=== PATIENT | female | born 1950 | race Caucasian/White ===

== ENCOUNTER 2019-01-17 08:25 | Day surgery (SDC) | payer OTHER, SELFPAY ==
[2019-01-17] VITALS (8 sets, daily range): BP systolic 110–144; BP diastolic 76–85; PULSE 63–83; RESP 12–17; TEMP 36.2–36.6; O2SAT 92–100; BMI 26.9
--- NOTE | 2019-01-17 | DI.RAD.S_ITS ---
PROCEDURE: XR FOOT LT MIN 3V INDICATIONS: LESFRANC FX REPAIR 2ND METATARSEL TECHNIQUE: 2 views of the foot were acquired. COMPARISON: [facility], CT, CT FOOT LEFT WITHOUT CONTRAST, 01/11/2019, 14:42. [facility], CR, XR FOOT 3 VIEWS WEIGHT BEARING LEFT, 01/12/2019, 15:09. FINDINGS: Bones: Intraoperative images demonstrating fixation of the second metatarsal base to the tarsal bones. Hardware is intact. Previously identified fractures of the first and second cuneiform bones as well as the fourth metatarsal fracture are noted although not as well-seen as on prior exams. Soft tissues: No tibiotalar joint effusion. Achilles tendon appears normal. IMPRESSION: ORIF of second metatarsal and cuneiform fractures. Dictated by: Coretta Pike M.D. on 01/17/2019 at 15:51 Approved by: Coretta Pike M.D. on 01/17/2019 at 15:53
--- NOTE | 2019-01-17 09:59 | SUR.PREOP ---
Patient states that she asked the doctor at her office appointment, if she can leave on her toenail trinidadian and was told yes.
[2019-01-17] MEDS: LACTATED RINGERS 1,000 ML 42 ML IV ×2 (10:02→12:10)
--- NOTE | 2019-01-17 10:35 | PM.PREOP ---
Pre-operative Note Interval Note History & Physical reviewed/Exam performed by Physician: Yes Changes to H&P: No
[2019-01-17] MEDS: CLINDAMYCIN 900 MG/50 ML PIGGYBACK 50 MG IV (11:02)
--- NOTE | 2019-01-17 11:36 | SUR.OPER ---
Supine on padded OR bed, head on pillow, arms secured on padded arm boards at <90 degrees abduction, legs uncrossed, safety belt at thigh, tape over blanket over lower legs.
[2019-01-17] MEDS: BUPIVACAINE 0.25% W/ EPI 30 ML VIAL INJ (11:54)
--- NOTE | 2019-01-17 13:06 | PM.OP.1 ---
Operative Date/Time/Diagnoses Date of procedure: 01/17/19 Time of procedure: 11:35 Pre-op diagnosis: 1. Lisfranc fracture dislocation tarsometatarsal joints left foot S93.325 2. Fracture 2nd metatarsal left foot S92.322 3. Fracture 4th metatarsal left foot S92.342 Post-op diagnosis: same Procedure & Clinicians Procedure: 1. Open reduction internal fixation left tarsometatarsal joint fracture dislocation CPT code 85362 2. Open reduction internal fixation fracture left 2nd metatarsal CPT code 09816 3. Closed treatment 4th metatarsal fracture cpt 02318 Same procedure as scheduled: Yes Indications: The patient is a 68-year-old female out of fall and tripped over a dog leash 1 week ago. The patient was out of town when this happened. she went to an urgent care and then was referred to an ER where she was diagnosed with an unstable Lisfranc fracture dislocation injury. The patient was indicated for surgery for stabilization of her unstable fracture pattern to reduce the risks of malunion and symptomatic posttraumatic arthritis/defomity. We discussed the injury and treatment options in detail these included nonoperative treatments, open reduction internal fixation primary fusion options. The risks and benefits of surgery was discussed these risks include but are not limited to infection, malunion, nonunion, risk of bleeding, additional surgeries, persistent pain, risk of hardware irritation or breakage, injuries to nerves and blood vessels, DVT, PE, , cart amputation, cardiopulmonary complications. The in-depth treatment choices the differences between open reduction internal fixation primary thesis or discussed in detail with the patient. At this time patient has chosen to proceed with open reduction internal fixation. We have discussed planned hardware removal 5-6 months postoperative relief. The patient has no evidence of gastroc contracture on exam. Patient understands that the healing bones and soft tissues will take approximately 3 months of full recovery may require 6-9 months. The patient understands it is critical to elevate the operative extremity above the heart 1st 2 weeks after surgery to control swelling and pain. Patient was counseled and await will be allowed on the surgical leg for approximately 6-12 weeks or until the patient is instructed to initiate weight-bearing. Patient has no personal history of DVT or PE and is not on hormonal replacement. We have selected 325 mg of aspirin as DVT prophylaxis Surgeon: Yanira Regalado Senior Controls Technician: Angela Tran Anesthesia Type: General, Peripheral nerve block and Local Operative Notes Findings: The 2nd metatarsal base fracture with some mild comminution this was grossly unstable as well as obvious instability of the Lisfranc articulation between the 2nd metatarsal base and the medial cuneiform. Stress examination under direct visualization and fluoroscopy was performed for the remaining tarsometatarsal joints with no evidence of instability at the 1st 3rd 4th and 5th tarsometatarsal joints. The known 4th metatarsal fracture remained well aligned. Closure Type: primary Specimen(s): none sent Applied: implant(s) (Arthrex 4.0 partially-threaded cannulated screw. Arthrex 4 hole 3 mm locking plate) Estimated Blood Loss (mL): 2 Blood products transfused: none Tourniquet time (min): 52 Procedure in detail: The patient was seen in the preoperative holding area. The appropriate limb and extremity were marked. The patient was given operative instructions and the informed consent was once again confirmed with the patient final questions were answered. Patient was then brought to the operating room. A preoperative block was placed by the anesthesia team for postoperative pain control. Patient was in position on the operating table in the supine position and given an anesthetic. Following successful level of anesthesia the patient was appropriately padded position secured to the table. An SCD was placed on the contralateral lower extremity. The surgical leg was then prepped and draped in standard sterile fashion. A formal time-out procedure was completed confirming the patient's side and site of surgery and administration of appropriate preoperative antibiotics. All were in agreement. A large C-arm was used to perform a stress examination and the 2nd metatarsal was found to be unstable. The remainder of the tarsometatarsal joints appeared stable. An Esmarch bandage was then utilized to exsanguinate the limb and the tourniquet was raised on the thigh to 250 mm of mercury and stayed there for 52 minutes. Attention was turned to the dorsum of the foot. Using fluoroscopic guidance a incision line was marked out over the dorsum of the foot along the 2nd metatarsal. This extended from the navicular cuneiform to the midshaft of the 2nd metatarsal. Dissection was carried down through the skin and subcutaneous tissue and the dorsal cutaneous nerves were protected. The interval between the extensor hallucis brevis and the extensor digitorum longus tendons was found and entered. Extensor digitorum brevis and neurovascular bundle were retracted medially. This provided excellent access to the 2nd TMT joint and the Lisfranc joint. Subperiosteal dissection was performed to visualize the medial lateral aspect of the 1st tarsometatarsal joint. Additionally moving back subcutaneously as a 2nd and medial window was opened in the the tissues to visualize the medial 1st tarsometatarsal joint. This capsule was noted to be intact and with direct mobilization was stable to stress. Attention was returned to the 2nd tarsometatarsal joint. The dorsal capsule was grossly disrupted and the joint was grossly unstable. There was some comminution medially at the Lisfranc joint and a smaller amount laterally. The joint was distracted. This had some plantar comminution but was largely intact and believed to be salvageable. Due to the metatarsal base comminution a construct with a bridge plate and a separate Lisfranc articulations screw was selected. A rongeur was used to debride the Lisfranc joint the Lisfranc and 2nd tarsometatarsal joints were then reduced using a clamp and then pinned in place. A 4.0 cannulated screw from the Arthrex set was directed across the Lisfranc articulation from the 2nd metatarsal base into the medial cuneiform. This was drilled and then placed obtaining excellent compression. A 4 hole 3.0 locking plate from the Arthrex set was also utilized to bridge the 2nd TMT joint. This was 1st secured with nonlocking screws to approximate it to bone and then these were exchanged for locking screws proximally and distally. Following fixation the clamps and additional pins were removed the fixation was then stressed again under manual testing and was found to be stable. Final fluoroscopic imaging was obtained confirming excellent improved alignment of the 2nd tarsometatarsal and Lisfranc joint and maintained alignment of the other tarsometatarsal joints in the 4th metatarsal fracture. The tourniquet was released and hemostasis was achieved. Deep layers were closed with the 2 0 Vicryl and subcutaneous tissues were closed with 4 0 Monocryl and the skin with 4 O nylon. Sterile bulky Ernandez dressing and splint were applied. This was done in a U and footplate fashion. There was absolutely no plaster material on the heel. Patient was woken from anesthesia and taken to the recovery room in good condition. There no known complications from the surgery. Complications: none Condition: stable Disposition: PACU Plan for aftercare: The patient will be nonweightbearing on the surgical lower extremity for approximately 6 weeks. They will start aspirin 325 mg daily on postoperative day 1 and maintain this until they are weight-bearing. They will follow up for suture removal and go into a boot but remain nonweightbearing for total of 6 weeks. The patient will then progressively weightbear with a arch support in the boot.
[2019-01-17] MEDS: OXYCODONE/ACETAMINOPHEN 5/325 TABLET 1 TAB PO (13:18)
== END 2019-01-17 14:10 | disposition home or self-care (01) ==
PROVIDERS: PCP Family Medicine; Visit Provider Orthopaedic Surgery Foot and Ankle Surgery
PROC: (CPT 28485; principal; 2019-01-17 11:15)
DX: S93.325A Dislocation of tarsometatarsal joint of left foot, initial encounter (principal); S92.342A Displaced fracture of fourth metatarsal bone, left foot, initial encounter for closed fracture; S92.322A Displaced fracture of second metatarsal bone, left foot, initial encounter for closed fracture; W01.0XXA Fall on same level from slipping, tripping and stumbling without subsequent striking against object, initial encounter
CPT/HCPCS: 28615; 28485; 73630; 76000; J1100; J2405; J2704; J3010